=== PATIENT | male | born 1995 | race Caucasian/White ===

== ENCOUNTER 2022-03-25 11:16 | Emergency (ER) | payer MEDICAID ==
[~2022-03-25 11:16] MED LIST: AMOXICILLIN500 M1 PO; BACTRIM DS TAB1 EACH PO; IBUPROFEN800 MG PO
[2022-03-25 12:19] LABS: HEMOGLOBIN 14.6 gm/dl (14.0-17.5); RED BLOOD COUNT 4.88 M/UL (4.20-5.50); WHITE BLOOD COUNT 10.5 K/UL (4.5-11.0)
[2022-03-25 12:19] LABS: BUN/CREATININE RATIO 17 (0-10)
[2022-03-25] MEDS ORDERED: AMOX TR-K CLV1 EAC4 PO (13:21)
[2022-03-25] MEDS ORDERED: PREDNISONE 20 M20 MG PO (13:30)
== END 2022-03-25 14:05 | disposition home or self-care (01) ==
LOC: ER1 11:16
PROVIDERS: Physician Assistant
DX: T78.3XXA Angioneurotic edema, initial encounter (principal); K05.10 Chronic gingivitis, plaque induced; K02.9 Dental caries, unspecified; F17.210 Nicotine dependence, cigarettes, uncomplicated
CPT/HCPCS: 80053; 83605; 85025; 96361; 96374; 96375; 99283; J0696; J2930